=== PATIENT | female | born 1965 | race Caucasian/White ===

== ENCOUNTER 2025-02-06 09:42 | Emergency (ER) | payer MEDICAID ==
[2025-02-06] MEDS ORDERED: Sodium Chloride 0.9% 10 ML Syringe FLUSH PRN (09:54)
[2025-02-06] MEDS: Ondansetron 4 MG/2 ML SDV IVPUSH ONE (09:57)
[2025-02-06 10:16] LABS: GLUCOSE,URINE NORMAL (NORMAL); OCCULT BLOOD,URINE MODERATE (NEGATIVE)
[2025-02-06 10:18] LABS: APPEARANCE,URINE SLIGHTLY CLOUDY (CLEAR)
[2025-02-06 10:19] LABS: SQUAMOUS EPITHELIAL CELLS,UR MODERATE (NS,R,O)
[2025-02-06 10:31] LABS: BASOPHILS ABSOLUTE AUTO 0.0 x10-3/uL (0.0-0.1); BASOPHILS PERCENT AUTO 0.4 % (0.2-1.5); EOSINOPHILS ABSOLUTE AUTO 0.0 x10-3/uL (0.0-0.8); EOSINOPHILS PERCENT AUTO 0.1 % (0.6-8.1); LYMPHOCYTES ABSOLUTE AUTO 1.0 x10-3/uL (1.0-4.4); LYMPHOCYTES PERCENT AUTO 9.9 % (18.4-52.1); MEAN PLATELET VOLUME 9.3 fL (7.1-12.4); MONOCYTES ABSOLUTE AUTO 0.7 x10-3/uL (0.3-1.0); MONOCYTES PERCENT AUTO 6.4 % (4.4-15.7); NEUTROPHILS ABSOLUTE AUTO 8.7 x10-3/uL (1.5-6.3); NEUTROPHILS PERCENT AUTO 83.2 % (30.8-76.2); PLATELET COUNT,PLT 180 x10(3)uL (151-488); RED BLOOD CELL COUNT 4.89 x10(6)uL (3.60-5.20); RED CELL DISTRIBUTION WIDTH 13.9 % (12.3-16.5); WHITE BLOOD CELL COUNT,WBC 10.4 x10-3/uL (3.0-10.3)
[2025-02-06 10:32] LABS: BLOOD UREA NITROGEN,BUN 20 mg/dL (7-18); CARBON DIOXIDE,CO2 29 mmol/L (21-32); CHLORIDE,CL 99 mmol/L (100-110); CREATININE 0.8 mg/dL (0.55-1.02); EST CRCL DRUG DOSING (CG) 61.09 mL/min; ESTIMATED GFR 84 mL/min (>60); GLUCOSE RANDOM 145 mg/dL (80-116); POTASSIUM,K 3.2 mmol/L (3.5-5.3); SODIUM,NA 142 mmol/L (135-145)
[2025-02-06 10:38] LABS: A/G RATIO 1.0; ALANINE AMINOTRANSFERASE,ALT 25 U/L (12-36); ASPARTATE AMNIOTRANSFERASE,AST 27 IU/L (5-25); BILIRUBIN TOTAL 1.0 mg/dL (0.1-1.3); PROTEIN TOTAL,TP 8.2 g/dL (6.0-8.0)
[2025-02-06] MEDS ORDERED: Naloxone 0.4 MG/ML SDV IVPUSH PRN (10:44)
[2025-02-06] MEDS: fentaNYL 100 MCG/2 ML SDV IVPUSH ONE (11:00)
[2025-02-06] MEDS: Iopamidol 755 Mg/ML 100 ML Bottle IV SCH (11:49)
[2025-02-06] MEDS: NS + KCl 20mEq/L 1,000 ML IV SCH (12:42)
[2025-02-06] MEDS: LORazepam 2 MG/ML SDV IVPUSH ONE (13:10)
[2025-02-06 15:51] VITALS: BP 158/82; PULSE 82
== END 2025-02-06 15:15 | disposition home or self-care (01) ==
LOC: FB.ED 09:42
DX: K52.9 Noninfective gastroenteritis and colitis, unspecified (principal); E86.0 Dehydration; E87.6 Hypokalemia; I10 Essential (primary) hypertension; F17.200 Nicotine dependence, unspecified, uncomplicated; Z90.49 Acquired absence of other specified parts of digestive tract; Z90.710 Acquired absence of both cervix and uterus; Z79.899 Other long term (current) drug therapy; Z79.51 Long term (current) use of inhaled steroids; Z88.8 Allergy status to other drugs, medicaments and biological substances; Z91.09 Other allergy status, other than to drugs and biological substances
CPT/HCPCS: 36415; 74177; 74177-26; 80053; 81001; 83605; 83690; 83735; 84484; 85025; 86140; 93005; 96361; 96365; 96366; 96375; 99284-25; J1630; J2060; J2405; J2765; J3010; J3480; J7030; Q9967